=== PATIENT | male | born 1940 | race Caucasian/White ===

== ENCOUNTER 2022-08-11 08:37 | Emergency (ER) | payer MEDICARE, OTHER ==
[~2022-08-11] VITALS: Ht 180.3 cm; Wt 76.6 kg
[~2022-08-11 08:37] MED LIST: ASPIRIN EC81 MG PO; CARAFATE OR; CARDURA4 MG PO; CARDURA8 MG OR; CIPRO500 MG OR; COUMADIN5 MG OR; COUMADIN7.5 MG OR; FLAGYL500 MG PO; OXYCODONE5 M1 OR; PRILOSEC20 MG/CAP OR; PROSCAR5 MG PO; ROPINIROLE2 MG OR; TIKOSYN500 MCG OR; TOPROL XL OR; URSODIOL300 MG OR; ZOFRAN ODT4 MG PO
[2022-08-11 08:50] VITALS: BP 147/84
[2022-08-11 09:01] VITALS: BP 136/69
[2022-08-11 09:15] VITALS: BP 135/80
[2022-08-11 09:34] LABS: BASO% 0.2 % (0-3); EOS% 2.5 % (0-8); HEMATOCRIT 41.9 % (39.0-50.0); HEMOGLOBIN 13.3 g/dl (14.0-18.0); IMMATURE GRANULOCYTES 0.1 % (0.0-5.0); LYMPH% 9.2 % (15-41); MEAN CELL VOLUME 93.5 fL CALC (80.0-100.0); MEAN CORPUSCULAR HGB 29.7 pG CALC (26.0-32.0); MEAN CORPUSCULAR HGB CONC 31.7 g/dL CAL (32.0-36.0); MONO% 13.9 % (2-13); NEUT# 6.02 thou/uL (1.82-7.42); NEUT% 74.1 % (42-76); RED BLOOD COUNT 4.48 mill/uL (4.70-6.10); RED CELL DISTRI WIDTH 15.7 % (11.5-15.5)
[2022-08-11 10:00] LABS: ALBUMIN 4.1 g/dL (3.2-5.0); ALKALINE PHOSPHATASE 132 u/l (38-126); ANION GAP 12 (6-22 (CALC)); BUN 25 mg/dL (8-23); BUN/CREATININE RATIO 24 (12-20 (CALC)); CARBON DIOXIDE 27 mmol/l (22-30); CHLORIDE 101 mmol/l (95-108); CREATININE 1.1 mg/dL (0.7-1.3); GFR FOR AFR.AMER. > 60 ML/MIN (>=60 (CALC)); GFR OTHER RACES > 60 ML/MIN (>=60 (CALC)); POTASSIUM 4.5 mmol/l (3.5-5.1); SGOT/AST 35 u/l (19-48); SODIUM 136 mmol/l (137-146); TOTAL PROTEIN 6.9 g/dL (6.3-8.2)
[2022-08-11 10:01] LABS: BILIRUBIN, TOTAL 1.7 mg/dL (0.2-1.3)
[2022-08-11] MEDS ORDERED: TORADOL PO (10:42)
[2022-08-11] MEDS ORDERED: TRAMADOL HYDROC50 M1 PO (10:42)
[2022-08-11 11:01] VITALS: BP 135/80
[2022-08-11] MEDS ORDERED: PROTONIX40 M2 PO (22:53)
[2022-08-11] MEDS ORDERED: CELEXA10 MG PO (22:55)
[2022-08-12] MEDS ORDERED: TIZANIDINE HYDRO2 M1 (13:03)
[2022-08-12] MEDS ORDERED: METOPROL TAR25 MG PO (13:07)
[2022-08-12] MEDS ORDERED: FOLIC ACID1 MG PO (13:08)
[2022-08-12] MEDS ORDERED: MYSOLINE50 M1 PO (13:14)
[2022-08-12] MEDS ORDERED: GABAPENTIN600 MG PO (13:15)
[2022-08-12] MEDS ORDERED: METHOTREXATE S2.5 MG (13:17)
[2022-08-12] MEDS ORDERED: CELEBREX100 M1 PO (13:18)
== END 2022-08-11 11:12 | disposition home or self-care (01) ==
LOC: ED 08:37
PROVIDERS: Family Medicine
DX: M54.2 Cervicalgia (principal); M25.511 Pain in right shoulder

== ENCOUNTER 2022-08-11 22:01 | Observation (INO) | payer MEDICARE, OTHER ==
[~2022-08-11] VITALS: Ht 180.3 cm; Wt 78.6 kg
[~2022-08-11 22:01] MED LIST changes: +TORADOL PO; +TRAMADOL HYDROC50 M1 PO
--- NOTE | 2022-08-11 22:33 | NUR ---
PT VIA W/C TO THE TRIAGE ROOM WITH SPOUSE.
[2022-08-11 22:47] VITALS: BP 133/76
[2022-08-11] MEDS ORDERED: PROTONIX40 M2 PO (22:53)
[2022-08-11] MEDS ORDERED: CELEXA10 MG PO (22:55)
[2022-08-11 23:00] VITALS: BP 130/70
[2022-08-11 23:15] VITALS: BP 139/87
[2022-08-11 23:30] VITALS: BP 126/76
--- NOTE | 2022-08-11 23:30 | NUR ---
Reassessment of patient completed. No distress noted.FAMILY MEMBERS IN ROOM WITH PT
[2022-08-11 23:59] LABS: BASO% 0.1 % (0-3); EOS% 0.5 % (0-8); HEMATOCRIT 42.1 % (39.0-50.0); HEMOGLOBIN 13.5 g/dl (14.0-18.0); IMMATURE GRANULOCYTES 0.1 % (0.0-5.0); LYMPH% 7.7 % (15-41); MEAN CELL VOLUME 92.9 fL CALC (80.0-100.0); MEAN CORPUSCULAR HGB 29.8 pG CALC (26.0-32.0); MEAN CORPUSCULAR HGB CONC 32.1 g/dL CAL (32.0-36.0); MONO% 7.8 % (2-13); NEUT# 6.68 thou/uL (1.82-7.42); NEUT% 83.8 % (42-76); RED BLOOD COUNT 4.53 mill/uL (4.70-6.10); RED CELL DISTRI WIDTH 15.9 % (11.5-15.5)
[2022-08-12] VITALS (15 sets, daily range): BP systolic 81–131; BP diastolic 47–80
[2022-08-12 00:17] LABS: ALBUMIN 4.2 g/dL (3.2-5.0); ALKALINE PHOSPHATASE 131 u/l (38-126); ANION GAP 14 (6-22 (CALC)); BILIRUBIN, TOTAL 2.3 mg/dL (0.2-1.3); BUN 27 mg/dL (8-23); BUN/CREATININE RATIO 20 (12-20 (CALC)); CARBON DIOXIDE 26 mmol/l (22-30); CHLORIDE 97 mmol/l (95-108); CREATININE 1.3 mg/dL (0.7-1.3); GFR FOR AFR.AMER. > 60 ML/MIN (>=60 (CALC)); GFR OTHER RACES 53 ML/MIN (>=60 (CALC)); POTASSIUM 4.9 mmol/l (3.5-5.1); SGOT/AST 40 u/l (19-48); SODIUM 132 mmol/l (137-146); TOTAL PROTEIN 7.1 g/dL (6.3-8.2)
--- NOTE | 2022-08-12 00:30 | NUR ---
PT IN ROOM TALKING TO FAMILY MEMBERS IN ROOM. NAD. SHABANAS. PT HAS NO QUESTIONS OR CONCERNS AT THIS TIME
--- NOTE | 2022-08-12 01:30 | NUR ---
PT IN ROOM RESTING WITH EYES CLOSED. 3L OF O2 IS APPLIED PT'S SAT KEPT GOING DOWN INTO THE 80'S. PT STATED THAT HE HAS SLEEP APNEA AND USES A CPAP/BIPAP MACHINE AT HOME
[2022-08-12 01:59] LABS: URINE BILIRUBIN - DIPSTICK NEGATIVE (NEGATIVE); URINE BLOOD DIPSTICK SMALL (NEGATIVE); URINE COLOR YELLOW; URINE GLUCOSE - DIPSTICK NEGATIVE (NEGATIVE); URINE KETONE NEGATIVE (NEGATIVE); URINE PROTEIN - DIPSTICK TRACE mg/dL (NEG-TRACE)
[2022-08-12 02:04] LABS: URINE NITRITE - DIPSTICK NEGATIVE (Negative)
[2022-08-12 02:06] LABS: URINE BACTERIA MODERATE hpf; URINE EPITHELIAL CELLS FEW EPI/hpf (0-FEW); URINE LEUK ESTERASE SMALL (NEGATIVE)
[2022-08-12 02:07] LABS: URINE YEAST MODERATE hpf
--- NOTE | 2022-08-12 02:30 | NUR ---
PT IN ROOM RESTING WITH EYES CLOSED. VSS, NAD. PT IS BEETING ADMITTED AND IS AWAITING BED ASSIGNMENT
--- NOTE | 2022-08-12 03:16 | NUR ---
REPORT GIVEN TO KIRK ON MS. PT IS GOING TO ROON 278.
--- NOTE | 2022-08-12 03:43 | NUR ---
PT TRANSPORTED TO FLOOR VIA STRETCHER. PT WAS ABLE TO TRANSFER TO OTHER BED WITHOUT ANY PROBLEM. PT B/P WAS ON THE LOW SIDE WHEN HE WAS ASLEEP. PT AOX3, NAD
--- NOTE | 2022-08-12 03:43 | NUR ---
PT ARRIVED TO [facility] ROOM 278. PT A/OX3 AND NEWTOK. LAINE HEARING AIDS NOTED. RESPIRATIONS EVEN AND UNLABORED ON 3L NC. PT IS NOT DEPENDENT AT HOME BUT DOES WEAR CPAP. LUNG SOUNDS CLEAR. HEART RHYTHM NORMAL. BOWEL SOUNDS ACTIVE. #20G LAC INFUSING WITH IVF PER ORDER. SKIN INTACT. PULSES STRONG. PT STATES PAIN IS DOWN TO 2/10 OF RIGHT ARM. PT ORIENTED TO ROOM AND CALL LIGHT SYSTEM. DENIES OF ANY ADDITIONAL NEEDS. ALL SAFTEY PRECAUTIONS ARE IN PLACE WITH CALL LIGHT IN REACH
--- NOTE | 2022-08-12 08:10 | NUR ---
PT RESTING IN BED. VITAL SIGNS STABLE. PT COMPLAINING OF PAIN IN RIGHT ARM. WILL ADDRESS PAIN SITUATION.
[2022-08-12 08:37] LABS: INTERNATIONAL NORMALIZED RATIO 1.1 RATIO (0.7-1.3); PROTHROMBIN TIME 10.5 SECONDS (9.0-12.5)
--- NOTE | 2022-08-12 11:57 | NUR ---
PT RESTING COMFORTABLY. TEMP ELEVATED AT 100.3. TYLENOL GIVEN. NO NEEDS AT THIS TIME.
[2022-08-12] MEDS ORDERED: TIZANIDINE HYDRO2 M1 (13:03)
[2022-08-12] MEDS ORDERED: METOPROL TAR25 MG PO (13:07)
[2022-08-12] MEDS ORDERED: FOLIC ACID1 MG PO (13:08)
[2022-08-12] MEDS ORDERED: MYSOLINE50 M1 PO (13:14)
[2022-08-12] MEDS ORDERED: GABAPENTIN600 MG PO (13:15)
[2022-08-12] MEDS ORDERED: METHOTREXATE S2.5 MG (13:17)
[2022-08-12] MEDS ORDERED: CELEBREX100 M1 PO (13:18)
[2022-08-12 13:46] LABS: BASO% 0.1 % (0-3); EOS% 0.4 % (0-8); HEMATOCRIT 37.5 % (39.0-50.0); IMMATURE GRANULOCYTES 0.1 % (0.0-5.0); LYMPH% 10.9 % (15-41); MEAN CELL VOLUME 94.5 fL CALC (80.0-100.0); MEAN CORPUSCULAR HGB 30.2 pG CALC (26.0-32.0); NEUT# 5.83 thou/uL (1.82-7.42); NEUT% 83.5 % (42-76); RED BLOOD COUNT 3.97 mill/uL (4.70-6.10)
[2022-08-12 14:06] LABS: ALKALINE PHOSPHATASE 103 u/l (38-126); ANION GAP 11 (6-22 (CALC)); BILIRUBIN, TOTAL 2.7 mg/dL (0.2-1.3); BUN 24 mg/dL (8-23); BUN/CREATININE RATIO 22 (12-20 (CALC)); C-REACTIVE PROTEIN 8.8 mg/dL (0-0.9); CARBON DIOXIDE 23 mmol/l (22-30); CHLORIDE 101 mmol/l (95-108); CREATININE 1.1 mg/dL (0.7-1.3); GFR FOR AFR.AMER. > 60 ML/MIN (>=60 (CALC)); GFR OTHER RACES > 60 ML/MIN (>=60 (CALC)); POTASSIUM 4.4 mmol/l (3.5-5.1); SGOT/AST 32 u/l (19-48); SODIUM 131 mmol/l (137-146)
[2022-08-12 14:13] LABS: ALBUMIN 3.1 g/dL (3.2-5.0); TOTAL PROTEIN 5.3 g/dL (6.3-8.2)
--- NOTE | 2022-08-12 16:36 | NUR ---
PT RESTING COMFORTABLY. VITAL SIGNS STABLE. NO NEEDS AT THIS TIME.
--- NOTE | 2022-08-12 19:45 | NUR ---
PT IN BED WITH FAMILY AT BEDSIDE. PT A&OX3. FAMILY STATES PT LOOKS DEPRESSED. PT STATES HES SAD THAT HE WAS GOING IN TO A TRIP BUT SINCE HE IS HERE IT GOT CANCEL. PT DOES SHOWS A TEMP OF 102.9. PT WAS JUST MEDICATED BY DAY SHIFT NURSE. BREATHING IS EVEN AND UNLABORED. NO S/S OF DISTRESS NOTED. PT IS WARM TO TOUCH. NO NEEDS OR CONCERN VOICED AT THIS TIME. CALL LIGHT IN REACH AND BED IN LOWEST POSITION. WILL CONTINUE TO MONITOR.
--- NOTE | 2022-08-13 00:35 | NUR ---
PT IN BED RESTING WITH EYES CLOSED BREATHING EVEN AND UNLABORED. NO S/S OF DISTRESS NOTED. TEMPERATURE IS 97.9. CALL LIGHT IN REACH AND BED IN LOWEST POSITION.
--- NOTE | 2022-08-13 04:40 | NUR ---
PT IN BED RESTING WITH EYES CLOSED BREATHING EVEN AND UNLABORED. NO S/S OF DISTRESS NOTED. CALL LIGHT IN REACH.
[2022-08-13 04:42] VITALS: BP 118/61
[2022-08-13 05:33] LABS: HEMATOCRIT 37.9 % (39.0-50.0); HEMOGLOBIN 12.2 g/dl (14.0-18.0); MEAN CELL VOLUME 95.5 fL CALC (80.0-100.0); MEAN CORPUSCULAR HGB 30.7 pG CALC (26.0-32.0); MEAN CORPUSCULAR HGB CONC 32.2 g/dL CAL (32.0-36.0); RED BLOOD COUNT 3.97 mill/uL (4.70-6.10); RED CELL DISTRI WIDTH 16.2 % (11.5-15.5)
[2022-08-13 05:58] LABS: ALBUMIN 2.9 g/dL (3.2-5.0); ALKALINE PHOSPHATASE 102 u/l (38-126); ANION GAP 11 (6-22 (CALC)); BILIRUBIN, TOTAL 2.4 mg/dL (0.2-1.3); BUN 24 mg/dL (8-23); BUN/CREATININE RATIO 23 (12-20 (CALC)); CARBON DIOXIDE 23 mmol/l (22-30); CHLORIDE 104 mmol/l (95-108); GFR FOR AFR.AMER. > 60 ML/MIN (>=60 (CALC)); GFR OTHER RACES > 60 ML/MIN (>=60 (CALC)); POTASSIUM 4.8 mmol/l (3.5-5.1); SGOT/AST 31 u/l (19-48); SODIUM 133 mmol/l (137-146); TOTAL PROTEIN 5.1 g/dL (6.3-8.2)
[2022-08-13 07:16] VITALS: BP 110/53
--- NOTE | 2022-08-13 08:00 | NUR ---
PT IN BED WITH HOB UP, AWAKE, ALWERT AND ORIENTED X 3. PT HAS NO C/O PAIN AT THIS ITME. TELE LEADS ON AND ATTACHED. IV SITE TO LAC INTACT WITH NS @125ML/HR. PT IS USING URINAL AT BEDSIDE, CLEAR, YELLOW URINE NOTED. PT HAS CALL LIGHT WITHIN REACH AND ALL SAFETY MEASURES IN PLACE.
[2022-08-13 10:03] VITALS: BP 122/62
--- NOTE | 2022-08-13 12:00 | NUR ---
PT SITITNG UP IN BEDSIDE CHAIR WITH AT BEDSIDE. NO CHANGE IN STATUS AT THIS TIME
[2022-08-13 15:12] VITALS: BP 119/60
--- NOTE | 2022-08-13 16:00 | NUR ---
PT SITTING UP IN CHAIR AT BEDSIDE, ALERT AND ORIENTES. PT IN ROOM. PT HAS NO CHANGE IN STATUS AT THIS TIME. CALL LIGHT WITHIN REACH
[2022-08-13 20:21] VITALS: BP 122/68
--- NOTE | 2022-08-13 21:00 | NUR ---
PT IN RECLINER WATCHIN TV, DENIES PAIN OR DISCONFORT AT THIS TIME, BREATHING IS EVEN AND UNLABORED. NO S/S OF DISTRESS NOTED. ASSESSMENT COMPLETED AT THIS TIME. NO NEEDS OR CONCERD VOICED. CALL LIGHT IN REACH AND BED IN LOWEST POSITION.
--- NOTE | 2022-08-14 00:25 | NUR ---
PT IN BED RESTING WITH EYES CLOSED. PT HAS HIS CPAP ON. BREATHING IS EVEM AND UNLABORED. NO S/S OF DISTRESS NOTED, CALL LIGHT IN REACH AND BED IN LOWEST POSITION.
[2022-08-14 00:26] VITALS: BP 123/66
[2022-08-14 05:50] LABS: HEMATOCRIT 36.5 % (39.0-50.0); HEMOGLOBIN 11.7 g/dl (14.0-18.0); MEAN CELL VOLUME 93.8 fL CALC (80.0-100.0); MEAN CORPUSCULAR HGB 30.1 pG CALC (26.0-32.0); MEAN CORPUSCULAR HGB CONC 32.1 g/dL CAL (32.0-36.0); RED BLOOD COUNT 3.89 mill/uL (4.70-6.10); RED CELL DISTRI WIDTH 15.7 % (11.5-15.5)
--- NOTE | 2022-08-14 06:09 | NUR ---
pt in bed resting with eyes closed. cpap on no s/s of distress noted. call light in reach and bed in lowest position.
[2022-08-14 06:13] LABS: ALBUMIN 2.9 g/dL (3.2-5.0); ALKALINE PHOSPHATASE 98 u/l (38-126); ANION GAP 11 (6-22 (CALC)); BUN 22 mg/dL (8-23); BUN/CREATININE RATIO 27 (12-20 (CALC)); CARBON DIOXIDE 23 mmol/l (22-30); CHLORIDE 104 mmol/l (95-108); CREATININE 0.8 mg/dL (0.7-1.3); GFR FOR AFR.AMER. > 60 ML/MIN (>=60 (CALC)); GFR OTHER RACES > 60 ML/MIN (>=60 (CALC)); SGOT/AST 24 u/l (19-48); SODIUM 134 mmol/l (137-146); TOTAL PROTEIN 5.2 g/dL (6.3-8.2)
[2022-08-14 06:18] LABS: BILIRUBIN, TOTAL 1.2 mg/dL (0.2-1.3)
[2022-08-14 06:45] VITALS: BP 130/74
[2022-08-14 09:56] VITALS: BP 130/74
[2022-08-14] MEDS ORDERED: LEVOFLOXACIN500MG PO (10:28)
[2022-08-14] MEDS ORDERED: PREDNISONE10 MG PO (10:29)
[2022-08-14] MEDS ORDERED: TRAMADOL HYDROC50 M1 PO (10:32)
--- NOTE | 2022-08-14 11:33 | NUR ---
PT TELEMETRY REMOVED.IV REMOVED.DISCHARGE INSTRUCTIONS COMPLETED WITH PT.
== END 2022-08-14 12:36 | disposition home or self-care (01) ==
LOC: ED 22:01 → ED-I 08-12 01:15 → ED 08-12 02:22 → MS2 08-12 02:23
PROVIDERS: Emergency Medicine; ADMIT Internal Medicine; ATTEND Internal Medicine
DX: J40 Bronchitis, not specified as acute or chronic (principal); L40.50 Arthropathic psoriasis, unspecified; N39.0 Urinary tract infection, site not specified; I95.9 Hypotension, unspecified; I48.91 Unspecified atrial fibrillation; N40.0 Benign prostatic hyperplasia without lower urinary tract symptoms; K76.9 Liver disease, unspecified; G25.81 Restless legs syndrome; B95.61 Methicillin susceptible Staphylococcus aureus infection as the cause of diseases classified elsewhere; Z79.899 Other long term (current) drug therapy; Z85.828 Personal history of other malignant neoplasm of skin; Z20.822 Contact with and (suspected) exposure to COVID-19